=== PATIENT | male | born 2000 | race Caucasian/White ===

== ENCOUNTER 2024-05-05 14:42 | Inpatient (IN) | payer BC, SELFPAY ==
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
[2024-05-05 15:58] VITALS: BMI 22.5
[2024-05-05 16:00] VITALS: BP 129/80; PULSE 70; RESP 16; TEMP 36.5; O2SAT 98
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
[2024-05-05 20:02] VITALS: BP 110/60; PULSE 90; RESP 16; TEMP 36.9; O2SAT 99
[2024-05-06 05:40] VITALS: BP 117/77; PULSE 84; RESP 16; TEMP 36.7; O2SAT 97
--- NOTE | 2024-05-06 13:00 | W.PM.NPUPNS ---
Vitals/I&O/Wt Last Vital Signs Temp 98.0 F 05/06/24 05:40 Pulse 84 05/06/24 05:40 Resp 16 05/06/24 05:40 BP 117/77 05/06/24 05:40 Pulse Ox 97 05/06/24 05:40 O2 Del Method Room Air 05/06/24 05:40 Weight last 48 hrs Weight 83.915 kg Involuntary Hold Information 96 Hour Hold: 96 Hour Involuntary Admission: Yes 96 Hour Hold Ending Date: 05/11/24 96 Hour Hold Ending Time: 14:34 Coding Level of Care Code Acute Code for Chg Marli
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
[2024-05-06 13:54] VITALS: BP 117/77; PULSE 84; RESP 16; TEMP 36.7; O2SAT 97
== END 2024-05-06 16:30 | disposition home or self-care (01) | DRG 882 ==
PROVIDERS: Admitting Provider Psychiatry & Neurology Psychiatry; Visit Provider Psychiatry & Neurology Psychiatry
DX: F43.24 Adjustment disorder with disturbance of conduct (principal); F90.8 Attention-deficit hyperactivity disorder, other type; F10.90 Alcohol use, unspecified, uncomplicated
CPT/HCPCS: 97150; 97165